=== PATIENT | female | born 1980 | race Caucasian/White ===

== ENCOUNTER 2017-01-05 11:34 | Emergency (ER) | payer BC ==
[2017-01-05 12:13] VITALS: BP 112/68
--- NOTE | 2017-01-05 12:17 | EDM.PDOC ---
ED HPI GENERAL MEDICAL PROBLEM - General Chief Complaint: Genitourinary Problem Stated Complaint: URINARY PROBLEM Time Seen by Provider: 01/05/17 12:07 Source of Information: Reports: Patient History Limitations: Reports: No Limitations - History of Present Illness INITIAL COMMENTS - FREE TEXT/NARRATIVE: Patient complains of sore back since Friday, pain, burning, frequency, feeling like she isn't emptying all these symptoms started today. No complaints of fever, chills, no cva tenderness. No nausea, vomiting, no headache, chest pain or shortness of breath. Onset: Gradual Location: Reports: Abdomen Severity: Moderate - Related Data Allergies Allergy/AdvReac Type Severity Reaction Status Date / Time adhesive tape Allergy Rash Verified 01/05/17 12:14 bupropion [From Wellbutrin] Allergy Seizure Verified 01/05/17 12:14 Home Meds: Home Meds ClonazePAM [KlonoPIN] 1 mg PO BEDTIME PRN 01/05/17 [History] Escitalopram [Lexapro] 20 mg PO DAILY 01/05/17 [History] lamoTRIgine [Lamotrigine] 1 tab PO DAILY 01/05/17 [History] ED ROS GENERAL - Review of Systems Review Of Systems: See Below Constitutional: Reports: No Symptoms HEENT: Reports: No Symptoms Respiratory: Reports: No Symptoms Cardiovascular: Reports: No Symptoms Endocrine: Reports: No Symptoms GI/Abdominal: Reports: No Symptoms : Reports: Dysuria, Flank Pain, Frequency, Urgency, Urinary Retention Musculoskeletal: Reports: Back Pain Skin: Reports: No Symptoms Neurological: Reports: No Symptoms Psychiatric: Reports: No Symptoms Hematologic/Lymphatic: Reports: No Symptoms Immunologic: Reports: No Symptoms ED EXAM, RENAL/ - Physical Exam Exam: See Below Exam Limited By: No Limitations General Appearance: Alert, WD/WN, No Apparent Distress Eye Exam: Bilateral Eye: EOMI, PERRL Head: Atraumatic, Normocephalic Neck: Normal Inspection, Supple, Non-Tender, Full Range of Motion Respiratory/Chest: No Respiratory Distress, Lungs Clear, Normal Breath Sounds, No Accessory Muscle Use, Chest Non-Tender Cardiovascular: Normal Peripheral Pulses, Regular Rate, Rhythm, No Edema, No Gallop GI/Abdominal: Normal Bowel Sounds, Soft, Non-Tender, No Organomegaly Back Exam: Normal Inspection, Full Range of Motion Extremities: Normal Inspection, Normal Range of Motion, Non-Tender, No Pedal Edema, Normal Capillary Refill Neurological: Alert, Oriented, CN II-XII Intact, Normal Cognition, Normal Gait, Normal Reflexes Psychiatric: Normal Affect, Normal Mood Skin Exam: Warm, Dry, Intact, Normal Color Lymphatic: No Adenopathy Course - Orders/Labs/Meds Labs: Laboratory Tests 01/05/17 Range/Units 11:51 Urine Color Yellow (YELLOW) Urine Appearance Clear (CLEAR) Urine pH 7.5 (5.0-8.0) Ur Specific [place] 1.015 Urine Protein Negative (NEGATIVE) mg/dL Urine Glucose (UA) Negative (NEGATIVE) mg/dL Urine Ketones Negative (NEGATIVE) mg/dL Urine Occult Blood Negative (NEGATIVE) Urine Nitrite Negative (NEGATIVE) Urine Bilirubin Negative (NEGATIVE) Urine Urobilinogen 0.2 (0.2) EU/dL Ur Leukocyte Esterase Small H (NEGATIVE) Urine RBC 0-5 (NOT SEEN) /HPF Urine WBC 5-10 H (NOT SEEN) /HPF Ur Squamous Epith Cells Few H (NEGATIVE) /HPF Urine Bacteria Rare (NEGATIVE) /HPF Urine Mucus Not seen (NEGATIVE) /LPF Departure - Departure Time of Disposition: 12:37 Disposition: Home, Self-Care 01 Condition: Good Clinical Impression: UTI, Urinary tract infectious disease - Discharge Information Instructions: Urinary Tract Infection, Adult, [id number] Additional Instructions: Take the full course of antibiotic and pyridium Follow up with your primary provider as needed for any additional symptoms Drink plenty of water to help flush your kidneys Take the diflucan if you do get a yeast infection You can get the pyridium over the counter We will call you after the culture comes back if the bacterial infection is resistant to the macrobid Please call us with any questions or concerns - Problem List & Annotations (1) UTI, Urinary tract infectious disease SNOMED Code(s): 94831210 Code(s): N39.0 - URINARY TRACT INFECTION, SITE NOT SPECIFIED Status: Acute Priority: Low Current Visit: Yes - Problem List Review Problem List Initiated/Reviewed/Updated: Yes - Assessment/Plan Assessment:: urinary tract infection Plan: Take the full course of antibiotic and pyridium Follow up with your primary provider as needed for any additional symptoms Drink plenty of water to help flush your kidneys Take the diflucan if you do get a yeast infection You can get the pyridium over the counter We will call you after the culture comes back if the bacterial infection is resistant to the macrobid Please call us with any questions or concerns
[2017-01-05] MEDS ORDERED: Nitrofurantoin Monohydrate/Macrocrystalline 100 MG Cap PO ONE (12:19)
[2017-01-05] MEDS ORDERED: Phenazopyridine 95 MG Tab PO ONE (12:19)
== END 2017-01-05 12:40 | disposition home or self-care (01) ==
LOC: VM.ED 11:34
DX: N39.0 Urinary tract infection, site not specified (principal); Z88.8 Allergy status to other drugs, medicaments and biological substances; Z79.899 Other long term (current) drug therapy
CPT/HCPCS: 81001; 87086; 99284; A9270

== ENCOUNTER 2017-08-06 02:48 | Emergency (ER) | payer BC ==
[~2017-08-06 02:48] MED LIST: Azithromycin 250 MG Tab ONE
== END 2017-08-06 03:51 | disposition home or self-care (01) ==
LOC: VM.ED 02:48
DX: J02.0 Streptococcal pharyngitis (principal)
CPT/HCPCS: 87804; 87880; 99283; A9270-GY

== ENCOUNTER 2021-04-27 06:43 | Day surgery (SDC) | payer BC ==
[2021-04-27] MEDS ORDERED: Lactated Ringers 1,000 ML IV SCH (07:00)
[2021-04-27] MEDS ORDERED: Propofol 200 MG/20 ML SDV ONE ×2 (07:34→08:35)
[2021-04-27] MEDS ORDERED: fentaNYL 100 MCG/2 ML SDV ONE (07:34)
[2021-04-27 09:45] VITALS: BP 104/67; PULSE 78
--- NOTE | 2021-04-28 14:16 | OR ---
PREOPERATIVE DIAGNOSIS: Constipation. POSTOPERATIVE DIAGNOSIS: Colon polyp. PROCEDURE PERFORMED: Total flexible colonoscopy with biopsies. ANESTHESIA: MAC anesthesia. COMPLICATIONS: None. FINDINGS: 1. Grossly normal terminal ileum and colon with random biopsies obtained. 2. Sigmoid colon polyp, 2 mm, cold forceps. Start time 0827, cecum 0837, stop 0848. BOWEL PREP: [place] class 2. INDICATIONS: Jessie Simons is a 40-year-old female who has had lifelong constipation, but said it has been worse over the last 2 months. She has tried some MiraLAX and stool softeners, but it does not sound like she has a very consistent bowel regimen. No bloody stools. She has also some bloating. She thinks that her mom had a total colectomy for what sounds to be possibly dysmotility, although this is somewhat unclear. DETAILS OF PROCEDURE: Informed consent was obtained. The patient was brought to the procedure room and placed in left lateral decubitus position. MAC anesthesia was induced by Anesthesia colleagues. The colonoscope was introduced in the rectum and advanced all the way to the cecum. The appendiceal orifice and ileocecal valve were photographed. The terminal ileum was intubated. The colonoscope was then slowly withdrawn. No abnormalities were seen except for what is mentioned in the above finding section. A retroflexed view was obtained, and the scope was removed. The patient tolerated the procedure well, awoken from anesthesia by Anesthesia colleagues without incident. Pathology: RECOMMENDATIONS: 1. Would initiate an aggressive and consistent bowel regimen to assist with this constipation. 2. She may have a component of dysmotility and may benefit from a GI referral if symptoms do not improve. RKM: 04/27/2021 08:54:48 MODL: 04/27/2021 12:34:56 /[id number]
== END 2021-04-27 10:30 | disposition home or self-care (01) ==
LOC: VM.SDS 06:43
PROVIDERS: ATTEND Student in an Organized Health Care Education/Training Program
DX: D12.5 Benign neoplasm of sigmoid colon (principal); K58.1 Irritable bowel syndrome with constipation; F41.1 Generalized anxiety disorder; G43.709 Chronic migraine without aura, not intractable, without status migrainosus; F17.210 Nicotine dependence, cigarettes, uncomplicated; Z98.890 Other specified postprocedural states; Z79.899 Other long term (current) drug therapy; Z88.8 Allergy status to other drugs, medicaments and biological substances
CPT/HCPCS: 00811; J2704; J3010; J7120

== ENCOUNTER 2021-10-31 15:08 | Emergency (ER) | payer BC, OTHER ==
[2021-10-31 16:23] LABS: CHLORIDE,CL 103 mmol/L (98-107); SODIUM,NA 142 mmol/L (136-145)
[2021-10-31 16:24] LABS: ANION GAP 14.7 mmol/L (5-15)
[2021-10-31 16:31] VITALS: BP 94/57; PULSE 76
[2021-10-31] MEDS ORDERED: Aspirin 81 MG Tab.Chew PO ONE (18:38)
== END 2021-10-31 16:17 | disposition home or self-care (01) ==
LOC: VM.ED 15:08
DX: M62.838 Other muscle spasm (principal); Z91.048 Other nonmedicinal substance allergy status; Z88.8 Allergy status to other drugs, medicaments and biological substances; Z72.0 Tobacco use
CPT/HCPCS: 36415; 71046; 80053; 82550; 83615; 84484; 85025; 85379; 86140; 93005; 93010; 99284; 99284-25; A9270-GY